=== PATIENT | female | born 1990 | race Caucasian/White ===

== ENCOUNTER 2021-04-27 08:39 | Outpatient (CLI) | payer OTHER | END 2021-04-27 08:40 | disposition home or self-care (01) | LOC: CSHCT 08:39 | PROVIDERS: ATTEND Otolaryngology Plastic Surgery within the Head & Neck | DX: H90.12 Conductive hearing loss, unilateral, left ear, with unrestricted hearing on the contralateral side (principal) | CPT/HCPCS: 70480 ==

== ENCOUNTER 2023-11-06 08:38 | Emergency (ER) | payer OTHER ==
[2023-11-06] MEDS ORDERED: Ondansetron ODT 4 MG TAB ONE (09:18)
[2023-11-06 10:02] LABS: Influenza A by NAA Not Detected (NotDetected); Influenza B by NAA Not Detected (NotDetected); SARS-CoV-2 NAA Rapid Test Not Detected (NotDetected)
== END 2023-11-06 09:23 | disposition home or self-care (01) ==
LOC: CSHERS 08:38
DX: J06.9 Acute upper respiratory infection, unspecified (principal)
CPT/HCPCS: 99284; Q0162